=== PATIENT | male | born 1935 | race Caucasian/White ===

== ENCOUNTER 2016-09-06 06:50 | Inpatient (IN) ==
[~2016-09-06 06:50] MED LIST: LACTATED RINGERS 1,000 ML IV SCH; SODIUM CHLORIDE 0.9% 100 ML IV ONE; VANCOMYCIN 500 MG VIAL ONE; VANCOMYCIN INJ 500 MG in SODIUM CHLORIDE 0.9% 100 ML IV ONE
--- NOTE | 2016-09-06 07:58 | History and Physical Update ---
History and Physical Update - History and Physical H&P was reviewed, the patient examined and there: are no changes in the patients condition since last H&P was completed.
[2016-09-06] MEDS ORDERED: HEPARIN 5,000 UNIT/1 ML VIAL ONE (08:45)
[2016-09-06] MEDS ORDERED: BUPIVACAINE 0.5% 50 ML VIAL ONE (08:46)
[2016-09-06] MEDS ORDERED: VANCOMYCIN 500 MG VIAL ONE (08:46)
[2016-09-06] MEDS ORDERED: THROMBIN TOPICAL (RECOMBINANT) 5,000 UNIT VIAL TOP ONE (08:46)
[2016-09-06] MEDS ORDERED: ONDANSETRON 4 MG/2 ML VIAL ONE (09:02)
[2016-09-06] MEDS ORDERED: PHENYLEPHRINE 50 MG/5 ML VIAL ONE (09:02)
[2016-09-06] MEDS ORDERED: PROPOFOL 200 MG/20 ML VIAL IV ONE (09:02)
[2016-09-06] MEDS ORDERED: KETOROLAC 30 MG/1 ML VIAL ONE (09:02)
[2016-09-06] MEDS ORDERED: HEPARIN 1,000 UNIT/1 ML VIAL ONE (09:02)
[2016-09-06] MEDS ORDERED: LIDOCAINE 2% 5 ML VIAL ONE (09:02)
--- NOTE | 2016-09-06 10:28 | Operative Note ---
Date of procedure: 09/06/16 Procedure: Dr. Cleveland operative report would be back. 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 Procedure: Right femoral endarterectomy with bovine patch graft. Indications for the procedure Mr. Arroyo is an 81-year-old man with extensive atherosclerotic disease has a right common femoral occlusion with severe life limiting claudication I have offered a right femoral endarterectomy have explained the alternatives risks and complications which he understands and accepts Description of the procedure: After the induction of LMA anesthesia the patient' s abdomen groins and thighs were prepped with ChloraPrep and Ioban and draped in the usual fashion I made an incision over the right common femoral canal carried this down to the common femoral artery and dissected it up under the inguinal ligament were noted extensive atherosclerosis but of one soft spot that would allow compression there was active pulse at that level I then dissected distally past the bifurcation of the common femoral separately controlling the superficial femoral large branch just at the origin of the superficial femoral and the profunda femoris these were all controlled with Vesseloops. The patient received 5000 units of intravenous heparin with adequate anticoagulation a Satinsky was placed across the external iliac and in the Vesseloops were used to control the common femoral made in a longitudinal arteriotomy from the margin of the superficial femoral into the common femoral noting extensive atherosclerotic plaque endarterectomy was carried out with an endarterectomy instrument this feathered very well on the profunda and well on the proximal superficial femoral and its large branch the and then feathered very nicely up to the external iliac I obtained good inflow at this level there was good collateral flow through the profunda and a branch at the origin of the superficial femoral loose flaps of medial removed this was flushed with heparinized saline I then closed the arteriotomy with a bovine pericardial patch and 5-0 Prolene suture. Bleeding at the posterior aspect of the superficial femoral was controlled with pledgeted suture. Flow was reestablished and was actually quite good down the superficial femoral and the profunda femoris artery. Hemostasis was good therefore heparin was left on reverse incision was irrigated and then covered with Surgicel and Tisseel incision was closed with 2 layers of 2-0 Monocryl and a 4 Monocryl subcuticular surgical glue. Total blood loss estimated at 150 cc sponge needle and aspirate counts are correct and the patient taken to recovery in stable condition. Surgeon / Physician: Zain Cleveland Discharge Plan - Discharge Medications No Action amLODIPine [Norvasc] 5 mg PO DAILY Pravastatin [Pravachol] 40 mg PO BEDTIME Nitroglycerin Sl Tab [Nitrostat] 0.4 mg SL Q5M PRN PRN Reason: Chest Pain Tamsulosin [Flomax] 0.4 mg PO BEDTIME Aspirin [Ecotrin] 81 mg PO DAILY Ranitidine Tab [Zantac Tab] 150 mg PO BEDTIME Escitalopram [Lexapro] 10 mg PO DAILY Latanoprost [Latanoprost 0.005 % Oph Soln] 1 drop BOTH EYES BEDTIME Cilostazol [Pletal] 50 mg PO BID Meclizine HCl 25 mg PO BID PRN PRN Reason: Dizziness - Follow Up or Referral - Forms/Instructions
[2016-09-06] MEDS ORDERED: ONDANSETRON 4 MG/2 ML VIAL IV PRN ×2 (10:29→10:56)
[2016-09-06] MEDS ORDERED: HYDROmorphone 2 MG/1 ML VIAL IV PRN ×2 (10:29→10:56)
[2016-09-06] MEDS ORDERED: MECLIZINE 25 MG TABLET PO PRN (10:31)
[2016-09-06] MEDS ORDERED: NITROGLYCERIN SL 0.4 MG TABLET SL PRN (10:31)
[2016-09-06] MEDS ORDERED: fentaNYL 100 MCG/2 ML VIAL ONE (10:37)
[2016-09-06] MEDS ORDERED: TISSUE ADHESIVE 1 EACH APPLICATOR TOP ONE (11:24)
[2016-09-06] MEDS ORDERED: LACTATED RINGERS 500 ML IV ONE (11:29)
[2016-09-06] MEDS: LACTATED RINGERS 1,000 ML IV SCH ×2 (12:01→21:22)
[2016-09-06] MEDS: CLOPIDOGREL 75 MG TABLET PO SCH (13:35)
[2016-09-06] MEDS: amLODIPine 5 MG TABLET PO SCH (13:35)
[2016-09-06] MEDS: ESCITALOPRAM 10 MG TABLET PO SCH (13:35)
[2016-09-06] MEDS: ASPIRIN CHEW 81 MG TABLET PO SCH (13:35)
--- NOTE | 2016-09-06 17:10 | Event Note ---
Mr. Arroyo had successful right femoral endarterectomy patch graft his groin incision looks good with no hematoma foot warm he states he feels fairly comfortable we will have him start walking tomorrow and will be discharging him when he is able to walk comfortably.
--- NOTE | 2016-09-06 20:50 | Anesthesia Post-Op ---
Anesthesia Post OP - Post Ansesthetic Evaluation Patient seen in post op: Yes Resp: within normal limits CV: within normal limits Mental: within normal limits Temp: within normal limits [id number]: within normal limits Nausea and Vomiting: within normal limits Pain: within normal limits
[2016-09-06] MEDS: CILOSTAZOL 100 MG TABLET PO SCH (21:21)
[2016-09-06] MEDS: TAMSULOSIN 0.4 MG CAPSULE PO SCH (21:21)
[2016-09-06] MEDS: FAMOTIDINE 20 MG TABLET PO SCH (21:21)
[2016-09-06] MEDS: PRAVASTATIN 20 MG TABLET PO SCH (21:21)
[2016-09-06] MEDS: LATANOPROST 0.005% OPH SOLN 2.5 ML BOTTLE BOTH EYES SCH (21:52)
[2016-09-07] MEDS: LACTATED RINGERS 1,000 ML IV SCH (05:55)
[2016-09-07 06:17] LABS: Basophils % 0.5 % (0.0-0.8); Eosinophils # 0.6 10*3/uL (0.0-0.87); Hematocrit 33.3 VOL% (42.0-52.0); Hemoglobin 10.7 GM/DL (14.0-18.0); Immature Granulocytes % 0.2 %; Immature Granulocytes Absolute 0.01 #; Lymphocytes # 1.3 10*3/uL (1.4-4.0); Lymphocytes % 30.6 % (21.2-54.2); Mean Corpuscular HGB Conc 32.1 GM/DL (32-36); Mean Corpuscular Hemoglobin 30 PG (27-34); Mean Corpuscular Volume 92.5 FL (87-102); Mean Platelet Volume 8.7 FL (9.6-12.0); Monocytes # 0.3 10*3/uL (0.11-0.8); Monocytes % 6.6 % (1.7-12.7); Neutrophils # 1.9 10*3/uL (1.4-7.4); Neutrophils % 47.1 % (38.7-73.9); Platelet Count 136 T/CUMM (130-400); Red Cell Distribution Width 14.6 % (9.3-17.3); White Blood Count 4.1 T/CUMM (4-12)
[2016-09-07 06:43] LABS: Band Neutrophils 1 % (0-10); Eosinophils 23 % (0-10); Hypochromasia Slight; Lymphocytes 27 % (20-55); Platelet Estimate Normal; Segmented Neutrophils 42 % (50-85); Total Cells Counted 100
[2016-09-07 06:44] LABS: Elliptocytes Few
[2016-09-07 06:55] LABS: Calcium 7.7 MG/DL (8.5-10.1); Osmolality,Calculated 280.1 MOS/KG (273-304); Potassium 3.8 MMOL/L (3.5-5.1)
[2016-09-07] MEDS: ASPIRIN CHEW 81 MG TABLET PO SCH (08:21)
[2016-09-07] MEDS: ESCITALOPRAM 10 MG TABLET PO SCH (08:21)
[2016-09-07] MEDS: CLOPIDOGREL 75 MG TABLET PO SCH (08:21)
[2016-09-07] MEDS: CILOSTAZOL 100 MG TABLET PO SCH ×2 (08:21→20:42)
[2016-09-07] MEDS: amLODIPine 5 MG TABLET PO SCH (08:22)
--- NOTE | 2016-09-07 12:30 | Event Note ---
Mr. Arroyo is up and about and has walked in the [place] a bit but states he feels shaky and dizzy. Vital signs look good his incision looks good blood count and BMP are good leg is warm and he does state the foot feels better to walk on. This point I will keep him here until he is able to be up and about comfortably and without any unusual weakness.
[2016-09-07] MEDS: LATANOPROST 0.005% OPH SOLN 2.5 ML BOTTLE BOTH EYES SCH (20:41)
[2016-09-07] MEDS: PRAVASTATIN 20 MG TABLET PO SCH (20:42)
[2016-09-07] MEDS: FAMOTIDINE 20 MG TABLET PO SCH (20:42)
[2016-09-07] MEDS: TAMSULOSIN 0.4 MG CAPSULE PO SCH (20:42)
--- NOTE | 2016-09-07 21:10 | Cardiology Consult Note ---
I, Krysta Damian RN, am scribing for, and in the presence of, Zach De La Torre MD 21:09. Assessment and Plan - Time spent with patient Time spent with patient: Greater than 30 minutes (Due to assessment, planning, documentation, medication review) (1) CAD (coronary artery disease) Status: Chronic Assessment and plan: No active angina this time Status post femoral endarterectomy yesterday Has had some shaking of unknown significance He is most concerned about his muscle spasm which is intermittent. I encouraged him to see his primary care physician, Dr. Lester mckeon, to evaluate it. Because of his borderline low blood pressure will hold Norvasc. We will also reduce Toprol-XL to 12.5 mg daily This can also be held if systolic blood pressures less than 100 We will check an EKG in a.m. I will follow along with. Thank you for allowing me to participate in this patient's care Current Visit: Yes Qualifiers: Coronary Disease-Associated Artery/Lesion type: bypass graft [place] vs. transplanted heart: [place] heart Associated angina: without angina Qualified Code(s): I25.810 - Atherosclerosis of coronary artery bypass graft(s) without angina pectoris (2) Hypertension Status: Chronic Current Visit: Yes (3) SRAVAN (obstructive sleep apnea) Status: Chronic Current Visit: Yes (4) History of coronary artery bypass graft Status: Chronic Current Visit: Yes (5) Dyslipidemia Status: Chronic Current Visit: Yes (6) PVD (peripheral vascular disease) Status: Acute Current Visit: Yes History of Present Illness - Data of Consult Patient: known to practice within the last 3 years Consult date: 09/06/16 Requesting Physician: Zain Cleveland - Consult Narrative Reason for consult: Follow postoperatively History of present illness: Senior Technologist: Dr. Olivares Mr. Arroyo is a 81 year old male who is routinely followed by Dr. Olivares with a history of claudication, PVD, BPH, CAD, COPD, dyslipidemia, hypertension, and SRAVAN. He reports he does not use CPAP or BiPAP. In January 1999 he had CABG with CHANDRA to the LAD, single reverse saphenous vein graft of the diagonal and right coronary arteries, and Y graft using reverse saphenous veins to the second circumflex marginal and third circumflex marginal coronary artery. Heart cath done in October 2013 with the circumflex graft stented with a drug- eluting stent. Echo done August 30 of this year with ejection fraction 55%, mild mitral regurgitation, mild tricuspid regurgitation, and mild pulmonic regurgitation. August 19 of this year he had abdominal aortogram with lower extremity runoff performed by Dr. Lamas with the following findings and recommendations: 1. Mild bilateral iliac disease 2. Right lower extremity: A. Short moderate to heavily calcified mid right common femoral artery occlusion B. Diffuse 30-60% SFA and popliteal disease, with 80% stenosis in the distal popliteal/P3 segment involving the ostium of anterior tibial and posterior tibial artery trunk C. Three-vessel runoff noted 3. Left lower extremity: A. Proximal SFA occlusion with reconstitution at Tacos's canal B. Discrete 95% mid popliteal stenosis, as well as 99% stenosis at the distal popliteal P3 segment involving the ostia of the anterior tibial and posterior tibial trunk 4. Failed attempt to cross right common femoral occlusion Recommendations and discussion: Given Mr. Arroyo's anatomy, believe to be well served with right common femoral artery endarterectomy. The rest of his disease is not critical on the right side. The right is his most symptomatic side. The left side would likely be challenging from percutaneous or surgical approach. He has also had bilateral cataract surgery. Family history includes hypertension in siblings. He reports he quit smoking in 1998, however he continues to chew loosely tobacco. Mr. Olivares was admitted yesterday for right femoral endarterectomy with bovine patch graft. We have been asked to see postoperatively. Currently he is sitting up in chair in no acute distress. He denies any chest pain, shortness of breath, palpitations, or dizziness. Currently his blood pressure is 104/61. He states this is lower than usual and he has been having episodes of shaking. He thinks this is related to the low blood pressure. He does report that he got dizzy while walking the [place] this morning, that was the first time he had been up since surgery. CC: Zain Cleveland MD - Home Medications and Allergies Home Medications: Home Medications Medication Instructions Recorded Confirmed Type Aspirin [Ecotrin] 81 mg PO DAILY 12/03/14 09/06/16 History Nitroglycerin Sl Tab [Nitrostat] 0.4 mg SL Q5M PRN 12/03/14 09/06/16 History Pravastatin [Pravachol] 40 mg PO BEDTIME 12/03/14 09/06/16 History Tamsulosin [Flomax] 0.4 mg PO BEDTIME 12/03/14 09/06/16 History amLODIPine [Norvasc] 5 mg PO DAILY 12/03/14 09/06/16 History Escitalopram [Lexapro] 10 mg PO DAILY 11/24/15 09/06/16 History Ranitidine Tab [Zantac Tab] 150 mg PO BEDTIME 11/24/15 09/06/16 History Cilostazol [Pletal] 50 mg PO BID 08/19/16 09/06/16 History Latanoprost [Latanoprost 0.005 % 1 drop BOTH EYES BEDTIME 08/19/16 09/06/16 History Oph Soln] Meclizine HCl 25 mg PO BID PRN 08/19/16 09/06/16 History Allergies/Adverse Reactions: Allergies Allergy/AdvReac Type Severity Reaction Status Date / Time Amoxicillin [From Augmentin] Allergy Unknown/Unable Verified 09/06/16 07:20 to obtain ceftriaxone [From Rocephin] Allergy Unknown/Unable Verified 09/06/16 07:20 to obtain clarithromycin [From Biaxin] Allergy Unknown/Unable Verified 09/06/16 07:20 to obtain clavulanic acid Allergy Unknown/Unable Verified 09/06/16 07:20 [From Augmentin] to obtain sulfamethoxazole Allergy Unknown/Unable Verified 09/06/16 07:20 [From Bactrim] to obtain trimethoprim [From Bactrim] Allergy Unknown/Unable Verified 09/06/16 07:20 to obtain codeine AdvReac Mild Nausea Verified 09/02/16 14:03 - Constitutional Constitutional: Present: as per HPI - EENT Eyes: Present: requires corrective lense. Absent: blurry vision, loss of vision Ears: Present: decreased hearing, tinnitus. Absent: ear pain Nose, mouth and throat: Present: sore throat. Absent: epistaxis, headache(s), neck pain - Cardiovascular Cardiovascular: Present: lightheadedness. Absent: chest pain at rest, chest pain with activity, diaphoresis, dyspnea, dyspnea on exertion, edema, radiating jaw, neck or arm pain, orthopnea, palpitations - Respiratory Respiratory: Present: cough. Absent: dyspnea, hemoptysis, dyspnea on exertion, wheezing - Gastrointestinal Gastrointestinal: Absent: abdominal pain, constipation, diarrhea, hematemesis, hematochezia, melena, nausea, vomiting - Genitourinary Genitourinary: Absent: dysuria, hematuria - Musculoskeletal Musculoskeletal: Present: limited range of motion, muscle weakness - Neurological Neurological: Present: dizziness. Absent: abnormal gait, frequent falls, syncope - Psychiatric Psychiatric: Absent: anxiety, depression - Endocrine Endocrine: Present: fatigue - Hematologic/Lymphatic Hematologic/Lymphatic: Present: easy bruising. Absent: easy bleeding Medical,Surgical,& Family Hx - Medical History Cardio: History of: CAD, Hypertension, AR (2014 Approx), PVD Psychological: History of: Anxiety Disorders Neurology: No history of: Seizures HEENT: History of: Ear Problem (Mild-Mod Loss Due to age), Eye Problem (Glasses) , Dental Problems, Glaucoma Endocrine: History of: Dyslipidemia Respiratory: History of: COPD, Obstructive Sleep Apnea (Doesn't Use C-Pap) Genitourinary: History of: Prostate Problems (enlarged prostate) Gastrointestinal: History of: Diverticulitis/ Diverticulosis, GERD, Polyps (Dr. Bernstein Removed x1), GI Problems (ESOPHAGEAL STRICTURE, HERNIA) Musculoskeletal: History of: Back/Neck Problems (arthritis; TPC Dr. Dao HX) , Musculoskeletal Problems (narrowing of the spine-pinched nerve, RESTLESS LEG SYNDROME) - Surgical History Cardiac Surgeries: Sugical HX of: Femoral-Popliteal Bypass Graft (09/06/16 Sched for Rt Femoral Endarterectomy), Cardiac Catheterization (Stents Dr. Olivares), Cardiac Surgery (CABG-1998) HEENT Surgeries: Surgical HX of: Eye Surgery (Cataract Rt/Lt Dr. Epstein) Abdominal Surgeries: Surgical HX of: Cholecystectomy, Colonoscopy, EGD (Dr. All Flood 2015) - Family History Family History: Reports;: Family Hypertension (Reportedly quit in 1998, currently she is listed tobacco) - Social History Smoking Status: Former smoker Have you smoked in the last 12 months: No Frequency of Alcohol Use: None Type of Drug Use: None Lives With:: Alone Functional capacity: independent ambulation Physical Examination Vital Signs Temp Pulse Resp BP Pulse Ox 98.2 F 64 18 167/78 92 L 09/06/16 07:27 09/06/16 07:27 09/06/16 07:27 09/06/16 07:27 09/06/16 07:27 General: Present: Appears Well, No Apparent Distress HEENT: Present: PERRL, Mucus Membranes Moist Neck: Present: Supple Neck, Midline Trachea, No Bruit Cardiac: Present: Reg Rate and Rhythm, No Murmur Lungs: Present: Normal Breath Sounds, No Wheeze, Rales, Rhonchi Neuro: Present: Resting Tremor. Absent: Essential Tremor Abdomen: Present: Soft, Active Bowel Sounds, Non-Tender. Absent: Distended Skin: Present: Clear Musculoskeletal: Present: Decreased Range of Motion Gait: Present: Normal Gait Extremities: Present: Normal Gait, No Edema, Normal Upper Extr. Pulses, Normal Lower Extr. Pulses Result/EKG - Labs CBC & BMP: 09/07/16 05:54 09/07/16 05:54 Lab Results: I have reviewed the past 24 hour labs Labs: Laboratory Results - last 24 hr 09/07/16 09/07/16 05:54 05:54 WBC 4.1 RBC 3.60 L Hgb 10.7 L Hct 33.3 L MCV 92.5 MCH 30 MCHC 32.1 RDW 14.6 Plt Count 136 MPV 8.7 L Neut % (Auto) 47.1 Lymph % (Auto) 30.6 [place] % (Auto) 6.6 Eos % (Auto) 15.0 H Baso % (Auto) 0.5 Neut # (Auto) 1.9 Lymph # (Auto) 1.3 L [place] # (Auto) 0.3 Eos # (Auto) 0.6 Baso # (Auto) 0.0 Total Counted 100 Immature Gran % 0.2 Nucleated RBC % 0.0 Immature Gran # 0.01 Segmented Neutrophils 42 L Band Neutrophils 1 Lymphocytes 27 Monocytes 7 Eosinophils 23 H Nucleated RBCs # 0.00 Platelet Estimate Normal Hypochromasia Slight Elliptocytes Few Sodium 142 Potassium 3.8 Chloride 108 H Carbon Dioxide 26 Anion Gap 11.8 BUN 8 Creatinine 1.10 GFR Calculation 67 BUN/Creatinine Ratio 7.00 Glucose 95 Calculated Osmolality 280.1 Calcium 7.7 L Quality Measures - VTE Contraindication to Pharmacological VTE Prophylaxis: High Risk of Bleeding Wil Houston Dale, MD, personally performed the services described in this documentation, ascribed by Krysta Damian RN in my presence, and it is both accurate and complete .
--- NOTE | 2016-09-08 08:03 | EKG Report ---
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
--- NOTE | 2016-09-08 08:32 | Discharge Summary ---
Hospital Course - Hospital Course Hospital Course: We back was admitted with a right common femoral artery occlusion and underwent right femoral endarterectomy and patch grafting. The first postoperative day he was feeling shaky and weak and uncomfortable but now is up and about tolerating a diet walking comfortably no claudication in the right leg foot is warm but I cannot appreciate palpable pedal pulses this is not unexpected. This time he is ready for discharge and I discussed with him wound care exercise restrictions expected recovery and possibility of further therapies on the left leg in the future. I will give him 10 Percocet fives for pain trapezium in this medication and driving restrictions while taking it. We will add Plavix 75 mg twice daily to his home meds and he will otherwise resume his normal home meds. I will see him in the office next week and then follow indefinitely. Discharge Plan - Discharge Data Disposition: Disch To Home/Self Care Condition at Discharge: Stable Discharge Diet: advance to your usual diet Activity: resume usual activities as tolerated Hygiene: may shower Weight Bearing at Discharge: full weight bearing Driving: not until seen by doctor Contact your physician if you experience:: fever over 101, Redness or swelling, Bleeding - Discharge Medications New Clopidogrel [Plavix] 75 mg PO DAILY #60 tablet Metoprolol Succinate Xl [Toprol Xl] 12.5 mg PO DAILY #30 tablet oxyCODONE/ACETAMINOPHEN 5-325 [Percocet 5-325] 1 tablet PO Q6H #10 tablet Continue Pravastatin [Pravachol] 40 mg PO BEDTIME Nitroglycerin Sl Tab [Nitrostat] 0.4 mg SL Q5M PRN PRN Reason: Chest Pain Tamsulosin [Flomax] 0.4 mg PO BEDTIME Aspirin [Ecotrin] 81 mg PO DAILY Ranitidine Tab [Zantac Tab] 150 mg PO BEDTIME Escitalopram [Lexapro] 10 mg PO DAILY Latanoprost [Latanoprost 0.005 % Oph Soln] 1 drop BOTH EYES BEDTIME Cilostazol [Pletal] 50 mg PO BID Meclizine HCl 25 mg PO BID PRN PRN Reason: Dizziness Discontinued amLODIPine [Norvasc] 5 mg PO DAILY - Follow Up or Referral Follow Up: Zain Cleveland MD [Physician] - 1 Week - Forms/Instructions Exam - Constitutional Vitals: Period Temp Pulse Resp BP Sys/Santiago Pulse Ox Last 24 Hr 97.6 F-99.7 F 78-96 18-20 97-124/47-68 90-94 DS: Provider Date of admission: 09/06/16 06:50 Primary care physician: Saavna Recinos Attending physician on admission: Zain Cleveland MD Consults: 09/06/16 13:23 Consult to Pharmacy [CONS] Routine Reason for Pharmacy Consult: Adjust Meds Renal Funct 09/06/16 17:08 Consult to Physician [CONS] Routine Comment: patient known to you Consulting Provider: Sanjay Lamas Consulting Provider Notified: Yes When should Consulting Provider be notified: Now Person Notified: daniela called Date Notified: 09/07/16 Time Notified: 08:05 Discharging clinician: Zain Cleveland MD
[2016-09-08] MEDS: ESCITALOPRAM 10 MG TABLET PO SCH (08:48)
[2016-09-08] MEDS: ASPIRIN CHEW 81 MG TABLET PO SCH (08:48)
[2016-09-08] MEDS: CLOPIDOGREL 75 MG TABLET PO SCH (08:48)
[2016-09-08] MEDS: CILOSTAZOL 100 MG TABLET PO SCH (08:49)
[2016-09-08 08:51] VITALS: BP 124/53
[2016-09-08] MEDS ORDERED: METOPROLOL SUCCINATE XL 25 MG TABLET PO SCH (09:00)
--- NOTE | 2016-09-08 11:46 | Pathology Report from [facility] ---
ACCESSION # : [id number] PATIENT NAME : Ramon Chahal ORDERING DR : NAEL MELO MD CLINICAL HX: RT femoral stenosis POST-OP DX: Same SPECIMEN INFO: RT femoral plaque GROSS DESCRIPTION: Received in formalin labeled "RAMON CHAHAL" are five pink yellow fragments of endarterectomy measuring 8.5 x 1.2 cm with marked calcification present. Meal Cook sections are submitted in one cassette following decalcification. DIAGNOSIS FOR RAMON CHAHAL: RIGHT FEMORAL PLAQUE, ENDARTERECTOMY: Calcified atheromatous plaque. SERVICE DATE: 09/06/2016 REPORT DATE: 09/08/2016 PATHOLOGIST: Nico Brown M.D. [facility]ITALTr[facility]
--- NOTE | 2016-09-08 21:17 | Cardiology Progress Note ---
Assessment and Plan (1) CAD (coronary artery disease) Status: Chronic Assessment and plan: No active angina this time Status post femoral endarterectomy yesterday Has had some shaking of unknown significance He is most concerned about his muscle spasm which is intermittent. I encouraged him to see his primary care physician, Dr. Lester mckeon, to evaluate it. Because of his borderline low blood pressure will hold Norvasc. We will also reduce Toprol-XL to 12.5 mg daily This can also be held if systolic blood pressures less than 100 We will check an EKG in a.m. I will follow along with. Thank you for allowing me to participate in this patient's care 09/08/16: No angina. I discussed with him about taking a low-dose of Toprol. So far he refuses. We will hold amlodipine for now. He will get his blood pressure checked twice a day at home. His systolic blood pressures of 140, he will restart the amlodipine. He will follow-up with Dr. Olivares in about 4-6 weeks. Thank you for allowing me to participate in this patient's care Qualifiers: Coronary Disease-Associated Artery/Lesion type: bypass graft [place] vs. transplanted heart: [place] heart Associated angina: without angina Qualified Code(s): I25.810 - Atherosclerosis of coronary artery bypass graft(s) without angina pectoris (2) Hypertension Status: Chronic (3) SRAVAN (obstructive sleep apnea) Status: Chronic (4) History of coronary artery bypass graft Status: Chronic (5) Dyslipidemia Status: Chronic (6) PVD (peripheral vascular disease) Status: Acute Cardiology - PN: Subj Interval history: No chest pain or shortness of breath. He has refused taking the Toprol. Exam (Progress Note) - Constitutional Vitals: Period Temp Pulse Resp BP Sys/Santiago Pulse Ox Last 24 Hr 97.6 F-99.7 F 80-113 18-20 112-124/51-68 92-93 Exam: HEENT: Pupils equal, reactive to light and accommodation Neck: NoJVD or bruit Lungs clear to auscultation Heart: Regular rhythm rate with normal S1 and S2. Apical S4 Abdomen: No hepatosplenomegaly Spine/extremities: No clubbing, cyanosis, or edema Neuro: Nonfocal Psych: No depression or anxiety Right foot pulses are stronger than the left Result/EKG - Labs CBC & BMP: 09/07/16 05:54 09/07/16 05:54 Quality Measures - VTE Contraindication to Pharmacological VTE Prophylaxis: High Risk of Bleeding Specialty Discharge - Follow Up or Referrals Follow up with: Zain Cleveland MD [Physician] - 09/19/16 1:15 pm Onel Olivares MD [Physician] - 10/06/16 9:40 am
== END 2016-09-08 10:45 | disposition home or self-care (01) | DRG 254 ==
LOC: N.SDSINP 06:50 → N.3E 12:50
PROVIDERS: ADMIT Surgery; ATTEND Surgery